=== PATIENT | male | born 1960 | race Caucasian/White ===

== ENCOUNTER 2019-01-30 16:57 | Emergency (ER) | payer BC ==
[2019-01-30 19:16] LABS: ABS Basophils 0.1 10^3/ul (0-0.2); ABS Eosinophils 0.3 10^3/ul (0-0.6); ABS Lymphocytes 2.6 10^3/ul (1.0-4.8); ABS Monocytes 0.8 10^3/ul (0-0.8); ABS Neutrophils 6.7 10^3/ul (1.5-7.7); Eosinophil % 2.5 %; Hematocrit 47 % (42-52); Hemoglobin 15.9 g/dL (14.0-18.0); Lymphocyte % 24.6 %; Mean Corpuscular HGB Conc 34 g/dL (31-36); Mean Corpuscular Hemoglobin 30 pg (27-31); Mean Corpuscular Volume 89 fL (80-94); Nucleated Red Blood Cells % 0.1; Platelet Count 253 10^3/uL (150-450); Red Blood Count 5.32 10^6 /uL (4.18-5.48); Red Cell Distribution Width 15 % (10-15); White Blood Count 10.4 10^3/uL (3.5-10.8)
[2019-01-30 19:31] LABS: Albumin 4.1 g/dL (3.2-5.2); Albumin/Globulin Ratio 1.5 (1-3); BUN/Creatinine Ratio 15.8 (8-20); C Reactive Protein 8.75 mg/L (<8.01); Calcium 9.2 mg/dL (8.6-10.3); EGFR African American 98.9 (>60); EGFR Non-African American 81.7 (>60); Globulin 2.7 g/dL (2-4); Total Bilirubin 0.5 mg/dL (0.2-1.0); Total Protein 6.8 g/dL (6.4-8.9)
[2019-01-30 20:17] LABS: Potassium 4.4 mmol/L (3.5-5.0)
--- NOTE | 2019-01-30 20:54 | ED ---
Abdominal Pain/Female - HPI Summary HPI Summary: Pt is a 58 y/o M presenting to the ED with a chief complaint of abd pain in the RUQ initially onset yesterday, 01/29/19, while he was hunting. He first describes it as an annoyance, and it was still fine when he woke up, but it worsened throughout the day today. He reports nausea yesterday, chronic diarrhea since his colon procedure, chronic cough w/ his bronchitis, but a normal appetite. He denies vomiting, back pain, fever, pain with breathing, or chest pain. - History of Current Complaint Chief Complaint: EDAbdPain Stated Complaint: ABD PAIN PER PT Time Seen by Provider: 01/30/19 20:39 Hx Obtained From: Patient Onset/Duration: Gradual Onset, Lasting Days, Still Present Timing: Days Severity Initially: Mild Severity Currently: Moderate Pain Intensity: 5 Pain Scale Used: 0-10 Numeric Location: Discrete At: RUQ Radiates: No Aggravating Factor(s): Nothing Alleviating Factor(s): Nothing Associated Signs and Symptoms: Positive: Cough - chronic, Nausea, Diarrhea - chronic since colon operation. Negative: Fever, Chest Pain, Back Pain, Vomiting Allergies/Adverse Reactions: Allergies Allergy/AdvReac Type Severity Reaction Status Date / Time bee venom protein (honey bee) Allergy Severe Anaphylatic Verified 01/30/19 17:02 Shock PMH/Surg Hx/FS Hx/Imm Hx Previously Healthy: Yes Cardiovascular History: Denies: Other Cardiovascular Problems/Disorders Respiratory History: Reports: Other Respiratory Problems/Disorders - Current smoker 1-1.5 PPD for 30 years GI History: Reports: Other GI Disorders - Colon polyps History: Denies: Other Problems/Disorders Musculoskeletal History: Reports: Hx Arthritis - shoulder, lower back, knees, ankles, neck Denies: Other Musculoskeletal History Sensory History: Reports: Hx Contacts or Glasses - Reading glasses-non prescription Denies: Hx Hearing Aid Opthamlomology History: Reports: Hx Contacts or Glasses - Reading glasses-non prescription Neurological History: Denies: Other Neuro Impairments/Disorders Psychiatric History: Denies: Other Psychiatric Issues/Disorders - Surgical History Surgery Procedure, Year, and Place: right elbow - pinched nerve release Hx Anesthesia Reactions: No Infectious Disease History: No Infectious Disease History: Denies: Hx Clostridium Difficile, Hx Hepatitis, Hx Human Immunodeficiency Virus (HIV), Hx of Known/Suspected MRSA, Hx Shingles, Hx Tuberculosis, Hx Known/ Suspected VRE, History Other Infectious Disease, Traveled Outside the [place] in Last 30 Days - Family History Known Family History: Negative: Diabetes - Social History Alcohol Use: Occasionally Alcohol Amount: couple times a week Hx Substance Use: No Substance Use Type: Reports: None Hx Tobacco Use: Yes Smoking Status (MU): Heavy Every Day Tobacco Smoker Type: Cigarettes Amount Used/How Often: 1 ppd Have You Smoked in the Last Year: Yes Review of Systems Negative: Fever Negative: Chest Pain Positive: Cough - chronic Positive: Abdominal Pain, Diarrhea - chronic, Nausea. Negative: Vomiting Negative: Myalgia - back pain All Other Systems Reviewed And Are Negative: Yes Physical Exam - Summary Physical Exam Summary: Appearance: Well-appearing, Well-nourished, lying in bed comfortably Skin: Warm, dry, no obvious rash Eyes: sclera anicteric, no conjunctival pallor ENT: mucous membranes moist, pharynx appears normal Neck: Supple, nontender Respiratory: Clear to auscultation, no signs of respiratory distress Cardiovascular: Normal S1, S2. No murmurs. Normal distal pulses in tibial and radial bilaterally. Abdomen: Soft, nontender, normal active bowel sounds present Musculoskeletal: Normal, Strength/ROM Intact Neurological: A&Ox3, awake and alert, mentation is normal, speech is fluent and appropriate Psychiatric: affect is normal, does not appear anxious or depressed Triage Information Reviewed: Yes Vital Signs On Initial Exam: Initial Vitals Temp Pulse Resp BP Pulse Ox 98.5 F 87 18 163/92 98 01/30/19 17:00 01/30/19 17:00 01/30/19 17:00 01/30/19 17:00 01/30/19 17:00 Vital Signs Reviewed: Yes Procedures - Sedation Patient Received Moderate/Deep Sedation with Procedure: No Diagnostics - Vital Signs Vital Signs Temp Pulse Resp BP Pulse Ox 01/30/19 18:44 98.6 F 91 20 125/77 96 01/30/19 17:00 98.5 F 87 18 163/92 98 - Laboratory Lab Results: Lab Results 01/30/19 01/30/19 01/30/19 Range/Units 19:08 19:08 19:08 WBC 10.4 (3.5-10.8) 10^3/uL RBC 5.32 (4.18-5.48) 10^6 /uL Hgb 15.9 (14.0-18.0) g/dL Hct 47 (42-52) % MCV 89 (80-94) fL MCH 30 (27-31) pg MCHC 34 (31-36) g/dL RDW 15 (10-15) % Plt Count 253 (150-450) 10^3/uL MPV 8.0 (7.4-10.4) fL Neut % (Auto) 63.8 % Lymph % (Auto) 24.6 % [place] % (Auto) 8.0 % Eos % (Auto) 2.5 % Baso % (Auto) 1.1 % Absolute Neuts (auto) 6.7 (1.5-7.7) 10^3/ul Absolute Lymphs (auto) 2.6 (1.0-4.8) 10^3/ul Absolute Monos (auto) 0.8 (0-0.8) 10^3/ul Absolute Eos (auto) 0.3 (0-0.6) 10^3/ul Absolute Basos (auto) 0.1 (0-0.2) 10^3/ul Absolute Nucleated RBC 0.0 10^3/ul Nucleated RBC % 0.1 Sodium 137 (135-145) mmol/L Potassium 4.4 (3.5-5.0) mmol/L Chloride 103 (101-111) mmol/L Carbon Dioxide 27 (22-32) mmol/L Anion Gap 7 (2-11) mmol/L BUN 15 (6-24) mg/dL Creatinine 0.95 (0.67-1.17) mg/dL Est GFR ( Amer) 98.9 (>60) Est GFR (Non-Af Amer) 81.7 (>60) BUN/Creatinine Ratio 15.8 (8-20) Glucose 90 (70-100) mg/dL Lactic Acid 0.8 (0.5-2.0) mmol/L Calcium 9.2 (8.6-10.3) mg/dL Total Bilirubin 0.50 (0.2-1.0) mg/dL AST 19 (13-39) U/L ALT 19 (7-52) U/L Alkaline Phosphatase 78 (34-104) U/L C-Reactive Protein 8.75 H (<8.01) mg/L Total Protein 6.8 (6.4-8.9) g/dL Albumin 4.1 (3.2-5.2) g/dL Globulin 2.7 (2-4) g/dL Albumin/Globulin Ratio 1.5 (1-3) Amylase 31 (29-103) U/L Lipase 25 (11.0-82.0) U/L Result Diagrams: 01/30/19 19:08 01/30/19 19:08 Lab Statement: Any lab studies that have been ordered have been reviewed, and results considered in the medical decision making process. - Ultrasound Gallbladder US Ultrasound Interpretation Completed By: Radiologist Summary of Ultrasound Findings: Normal RUQ ultrasound. ED physician has reviewed this report. - EKG 2101 Cardiac Rate: NL - 77bpm EKG Rhythm: Sinus Rhythm ST Segment: Normal Ectopy: None Summary of EKG Findings: EKG at 2101 shows NSR at 77 BPM, P waves, QRS complex, and T waves are within normal limits, T waves and intervals are normal, no ischemic changes. This is a normal EKG. ED physician has reviewed and interpreted this EKG. Abdominal Pain Fem Course/Dx - Course Course Of Treatment: Pt is a 58 y/o M presenting to the ED with a chief complaint of abd pain in RUQ initially onset yesterday, 01/29/19, while he was hunting. He reports nausea yesterday, chronic diarrhea since his colon procedure , chronic cough w/ his bronchitis, but a normal appetite. He denies vomiting, back pain, fever, pain with breathing, or chest pain. Pt's abd is non-tender on exam. Utrasound of the gallbladder is nml. Th pt and I had a discussion about further workup vs watchful waiting, given nl lab and imaging and benign abdominal exam, and he is comfortable with expectant management and returning if things worsen/change. EKG at 2101 shows NSR at 77 BPM, P waves, QRS complex , and T waves are within normal limits, T waves and intervals are normal, no ischemic changes. This is a normal EKG. ED physician has reviewed and interpreted this EKG. Pt will be d/c'ed with dx of abd pain with specific follow-up and return instructions. He is stable and agreeable with this plan. - Diagnoses Provider Diagnoses: Abdominal pain Discharge ED - Sign-Out/Discharge Documenting (check all that apply): Patient Departure - Discharge Plan Condition: Good Disposition: HOME Patient Education Materials: Acute Abdominal Pain (ED) Referrals: Kd Nuno MD [Primary Care Provider] - Additional Instructions: The tests we did today all look normal. Your pain seems to have improved somewhat and your physical exam is reassuringly unremarkable. I think it is ok to go home tonight without further workup and see how this develops. If things worsen overnight, or you develop new symptoms like vomiting, fever, or worsening pain, we would need to see you back. - Billing Disposition and Condition Condition: GOOD Disposition: Home - Attestation Statements Document Initiated by Xi: Yes Documenting Scribe: Shauna Kapoor Provider For Whom Xi is Documenting (Include Credential): Atul Loo MD. Scribe Attestation: Shauna Spear, [email or web address] for Atul Loo MD. on 01/31/19 at 0621. Scribe Documentation Reviewed: Yes Provider Attestation: The documentation as recorded by the Shauna crespo accurately reflects the service I personally performed and the decisions made by me, Atul Loo MD. Status of Scribe Document: Viewed
[2019-01-30 21:35] VITALS: BP 128/84
== END 2019-01-30 21:26 | disposition home or self-care (01) ==
LOC: ED 16:57
DX: R10.9 Unspecified abdominal pain (principal); F17.210 Nicotine dependence, cigarettes, uncomplicated
CPT/HCPCS: 36415; 76705; 80053; 82150; 83605; 83690; 85025; 86140; 93005; 99282